=== PATIENT | male | born 1965 | race Caucasian/White ===

== ENCOUNTER 2019-07-12 07:08 | Emergency (ER) | payer MEDICAID ==
[~2019-07-12] VITALS: Ht 177.8 cm; Wt 96.6 kg
[2019-07-12 07:33] VITALS: BP 160/91
[2019-07-12] MEDS ORDERED: cefTRIAXone SOD 1,000 MG VL IM ONE (08:30)
[2019-07-12 08:41] LABS: Urine Bacteria FEW /hpf (None Seen); Urine Blood Negative /uL (Negative); Urine Specific Gravity 1.016 (1.001-1.035); Urine WBC 11 /hpf (0 - 3)
[2019-07-12] MEDS ORDERED: IBUPROFEN 800 MG TAB PO ONE (09:00)
== END 2019-07-12 09:27 | disposition home or self-care (01) ==
LOC: ER 07:08
DX: N45.1 Epididymitis (principal); N43.3 Hydrocele, unspecified; I10 Essential (primary) hypertension; Z88.0 Allergy status to penicillin; Z88.6 Allergy status to analgesic agent
CPT/HCPCS: 76870; 81001; 96372; 99284; J0696